=== PATIENT | female | born 1975 | race Two or more races ===

== ENCOUNTER 2018-07-17 23:36 | Emergency (ER) | payer OTHER ==
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
[2018-07-18] MEDS ORDERED: BACITRACIN 15 GM TUBE TOPICAL OINTMENT TP ONE (00:17)
[2018-07-18] MEDS ORDERED: BACITRACIN 0.9 GM PACKET ONE (00:36)
[2018-07-18 00:40] VITALS: BP 141/90; PULSE 82; TEMP 98.6; BMI 32.2
[2018-07-18] MEDS ORDERED: SILVER SULFADIAZINE 1% TOP CREAM 50 GM JAR TP ONE ×2 (00:41→00:42)
== END 2018-07-18 01:00 | disposition home or self-care (01) ==
LOC: JER 23:36
DX: T22.211A Burn of second degree of right forearm, initial encounter (principal); X10.2XXA Contact with fats and cooking oils, initial encounter; Y93.G1 Activity, food preparation and clean up; Y92.89 Other specified places as the place of occurrence of the external cause
CPT/HCPCS: 99282-25

== ENCOUNTER 2020-01-27 16:50 | Emergency (ER) | payer OTHER ==
[2020-01-27 17:51] VITALS: BP 133/78; PULSE 111; TEMP 98
--- NOTE | 2020-01-27 17:57 | PDOC ---
Rapid Medical Evaluation Time Seen by Provider: 01/27/20 17:43 Medical Evaluation: Allergies Allergy/AdvReac Type Severity Reaction Status Date / Time No Known Allergies Allergy Verified 07/18/18 02:00 Vital Signs Temp Pulse Resp BP Pulse Ox 98.0 F 111 H 18 133/78 98 01/27/20 17:50 01/27/20 17:50 01/27/20 17:50 01/27/20 17:50 01/27/20 17:50 01/27/20 17:52 HPI: COVID-19 CDC guideline data points: The patient is a 44 y/o female with history of HTN, DM who presents to the ED with complaint of dry cough, headache and eye pain since yesterday. She denies any known COVID contacts or recent travel. She states she wanted to be tested for COVID. She denies other complaints. ROS: NEGATIVE: difficulty breathing, shortness of breath, chest pain, lightheadedness, dizziness, nausea, vomiting and diarrhea. Other 12 point ROS reviewed and negative. Exam: General: NAD, Well-Appearing, Awake, Alert Oriented x3. Vital signs stable. ENT: No rhinorrhea or nasal congestion. Moist mucosa Neck: FROM, no midline tenderness. Lungs: Clear to auscultation bilaterally without wheezes, rhonchi or rales. Normal excursion. Patient is able to speak in full sentences. Heart: HR: 112 Regular rhythm, S1-S2 present, no murmurs rubs or gallops. Abdomen: Non-distended. MSK/Extremities: No decrease ROM, No obvious deformities. No obvious cyanosis noted. Neuro: Normal Gait, Cranial Nerves II through XII Grossly Intact. Skin: No obvious rashes, bruising. Color Normal Appearing. Assessment/Plan:Pt is a 44 y/o female with HTN and DM who presents with cough and headache since yesterday. She wanted to get tested for COVID today. Patient does not meet testing criteria at this time. ASSESSMENT: Denies recent travel and known Covid exposure. Treatment: none indicated at this time. Discharge Disposition - Diagnosis Cough - Discharge Dispostion Condition at time of disposition: Stable - Referrals - Patient Instructions Printed Discharge Instructions: [facility]Coronavirus Instructions, [facility] COVID-19 Isolation Protocol Additional Instructions: Drink plenty fluids and get plenty of rest You were seen for your cough and possible Coronavirus (COVID-19) Please call the [facility] testing center to make an appointment at or you can call [facility] at from 8:30 AM to 6 PM; or you can visit the [facility] website: [email or web address] for more information about testing at the [facility]. Take Tylenol 650 mg every 6 hours as needed for fever or pain. You may take Robitussin or other [id number] cough syrup. Follow the dosing instructions on the bottle. Warm tea, honey, and salt water gargles may help your symptoms. Please take precautions and self quarantine for 2 weeks and follow-up with your primary care doctor and the Department of Health. Return to the nearest emergency department for shortness of breath, difficulty breathing, chest pain, or if you have any changes in your symptoms. Visit: [facility] for further instructions - Post Discharge Activity
== END 2020-01-27 18:00 | disposition home or self-care (01) ==
LOC: JER 16:50
DX: R05 Cough (principal)
CPT/HCPCS: 99282-25

== ENCOUNTER 2023-03-01 04:46 | Day surgery (SDC) | payer OTHER ==
[2023-03-01 14:03] VITALS: BMI 24.7
[2023-03-01 16:10] VITALS: TEMP 98
[2023-03-01 16:45] VITALS: BP 112/70; PULSE 75; RESP 14
== END 2023-03-01 16:52 | disposition home or self-care (01) ==
LOC: JASU-ENDO 04:46
PROVIDERS: ATTEND Student in an Organized Health Care Education/Training Program
PROC: 0DB78ZX Excision of Stomach, Pylorus, Via Natural or Artificial Opening Endoscopic, Diagnostic (ICD-10-PCS; 2023-03-01)
PROC: 0DB68ZX Excision of Stomach, Via Natural or Artificial Opening Endoscopic, Diagnostic (ICD-10-PCS; 2023-03-01)
PROC: 0DB98ZX Excision of Duodenum, Via Natural or Artificial Opening Endoscopic, Diagnostic (ICD-10-PCS; principal; 2023-03-01 15:30)
DX: K25.3 Acute gastric ulcer without hemorrhage or perforation (principal); K29.80 Duodenitis without bleeding; K20.90 Esophagitis, unspecified without bleeding; K29.50 Unspecified chronic gastritis without bleeding; B96.81 Helicobacter pylori [H. pylori] as the cause of diseases classified elsewhere
CPT/HCPCS: 82962; 88305-TC; 88342-TC